=== PATIENT | female | born 1990 | race Caucasian/White ===

== ENCOUNTER 2017-06-17 10:56 | Emergency (ER) | payer OTHER ==
[~2017-06-17] VITALS: Ht 167.6 cm; Wt 72.6 kg
== END 2017-06-17 12:05 | disposition home or self-care (01) ==
LOC: CFTX 10:56 → CED 10:56 → CFTX 11:56
DX: F41.0 Panic disorder [episodic paroxysmal anxiety] (principal)
CPT/HCPCS: 99281